=== PATIENT | male | born 1990 | race Hispanic/Latino ===

== ENCOUNTER 2016-12-09 02:22 | Emergency (ER) | payer SELFPAY ==
[2016-12-09 02:36] VITALS: PULSE 77
--- NOTE | 2016-12-09 04:32 | ED PDOC ---
HPI: Psych/Substance Abuse <Derek Varner Jr. - Last Filed: 12/09/16 08:08> Chief Complaint (Provider): Alcohol Ingestion History Per: EMS History/Exam Limitations: intoxication Onset/Duration Of Symptoms: Hrs Current Symptoms Are (Timing): Still Present Additional History Per: Patient Additional Complaint(s): Cheo Hendrickson is a 26 year old male with no past medical history who presents to the ED for evaluation of alcohol intoxication. Patient is cooperative and non agitated. History is limited due to intoxication. <Antione Chavez - Last Filed: 12/09/16 08:24> Time Seen by Provider: 12/09/16 02:36 Chief Complaint (Nursing): Alcohol Ingestion Past Medical History Vital Signs: Last Vital Signs Temp 97.6 F 12/09/16 02:34 Pulse 77 12/09/16 02:34 Resp 12/09/16 02:34 BP 137/68 12/09/16 02:34 Pulse Ox 97 12/09/16 04:41 <Derek Varner Jr. - Last Filed: 12/09/16 08:08> Reviewed: Historical Data, Nursing Documentation, Vital Signs Vital Signs: Last Vital Signs Temp 97.6 F 12/09/16 02:34 Pulse 77 12/09/16 02:34 Resp 12/09/16 02:34 BP 137/68 12/09/16 02:34 Pulse Ox 97 12/09/16 02:34 - Medical History PMH: No Chronic Diseases - Surgical History Surgical History: No Surg Hx - Family History Family History: States: Unknown Family Hx - Social History Alcohol: Social <Antione Chavez - Last Filed: 12/09/16 08:24> - Allergies Allergies/Adverse Reactions: Allergies Allergy/AdvReac Type Severity Reaction Status Date / Time No Known Allergies Allergy Verified 11/09/14 04:30 Review of Systems ROS Statement: Except As Marked, All Systems Reviewed And Found Negative Neurological: Positive for: Change in Speech <Antione Chavez - Last Filed: 12/09/16 08:24> Physical Exam - Reviewed Nursing Documentation Reviewed: Yes Vital Signs Reviewed: Yes - Physical Exam Appears: Positive for: Well, Non-toxic, No Acute Distress Head Exam: Positive for: ATRAUMATIC, NORMAL INSPECTION, NORMOCEPHALIC Skin: Positive for: Normal Color, Warm, Dry Eye Exam: Positive for: Normal appearance, EOMI, PERRL ENT: Positive for: Normal ENT Inspection Neck: Positive for: Normal, Painless ROM, Supple Cardiovascular/Chest: Positive for: Regular Rate, Rhythm. Negative for: Murmur , Tachycardia Respiratory: Positive for: Normal Breath Sounds Gastrointestinal/Abdominal: Positive for: Normal Exam, Soft. Negative for: Tenderness Male Genital Exam: Positive for: normal genitalia Back: Positive for: Normal Inspection Rectal: Positive for: Deferred Extremity: Positive for: Normal ROM Lymphatic: Positive for: Deferred Neurologic/Psych: Positive for: Alert, Oriented <Antione Chavez - Last Filed: 12/09/16 08:24> - ECG O2 Sat by Pulse Oximetry: 97 (RA) Pulse Ox Interpretation: Normal <Antione Chavez - Filed: 12/09/16 08:24> Medical Decision Making Medical Decision Makin: Initial Impression: 26 year old male alcohol intoxication. Initial Plan: * Alcohol serum * Drug screen Urine * POC * Re-Eval Signed out to Dr. Varner at 0700: pending sobriety. Scribe~Attestation: Documented by Lisbeth Arroyo acting as a~scribe~for Antione Chavez MD. ~ Provider~Scribe~Attestation: All medical record entries made by the~Scribe~were at my direction and personally dictated by me. I have reviewed the chart and agree that the record accurately reflects my personal performance of the history, physical exam, medical decision making, and the department course for this patient. I have also personally directed, reviewed, and agree with the discharge instructions and disposition. <Antione Chavez - Last Filed: 12/09/16 08:24> Disposition - Patient ED Disposition Is Patient to be Admitted: No - Disposition Disposition: Routine/Home Disposition Time: 08:08 - POA Present On Arrival: None <Derek Varner Jr. - Last Filed: 12/09/16 08:08> <Antione Chavez - Last Filed: 12/09/16 08:24> - Clinical Impression Clinical Impression: Alcohol intoxication - Disposition Referrals: Alcoholics Anonymous [Outside] Condition: IMPROVED Additional Instructions: Mr. Hendrickson, thank you for letting us take care of you today. Return to the ER if any problems. Do not drink alcohol in excess. Please call Alcoholics Anonymous to schedule outpatient care/assistance--phone number is listed below. Instructions: Alcohol Intoxication (ED) Forms: [facility] (Kittitian) Print Language: SLOVENIAN
[2016-12-09 08:53] VITALS: BP 130/77; RESP 18; TEMP 98; O2SAT 99
== END 2016-12-09 08:53 | disposition home or self-care (01) ==
LOC: H.ER 02:22
DX: F10.10 Alcohol abuse, uncomplicated (principal)
CPT/HCPCS: 99282; G0480

== ENCOUNTER 2017-03-10 03:01 | Emergency (ER) | payer SELFPAY ==
[2017-03-10 03:10] VITALS: BP 145/82; PULSE 88; RESP 16; TEMP 97.7; O2SAT 98
--- NOTE | 2017-03-10 03:26 | ED PDOC ---
HPI: Psych/Substance Abuse Time Seen by Provider: 03/10/17 03:04 Chief Complaint (Nursing): Alcohol Ingestion Chief Complaint (Provider): Alcohol Ingestion History Per: Patient History/Exam Limitations: no limitations Suicide/Self Injury Attempted (Context): None Modifying Factor(s): Alcohol Additional Complaint(s): 26 year old male brought in by [facility] presents to ED for alcohol intoxication and has a past history of excessive alcohol use. EMS states patient was found asleep on the hardwick of a car, walking with a steady gait, and had slurred speech. Patient offers no medical complaints. Provider offered the ability to call a sober democrat to escort patient home, but he is unable to contact anyone. PCP: None Past Medical History Reviewed: Historical Data, Nursing Documentation, Vital Signs Vital Signs: Last Vital Signs Temp 97.7 F 03/10/17 03:06 Pulse 88 03/10/17 03:06 Resp 16 03/10/17 03:06 BP 145/82 03/10/17 03:06 Pulse Ox 98 03/10/17 03:06 - Medical History PMH: No Chronic Diseases - Family History Family History: States: Unknown Family Hx - Social History Alcohol: Social - Allergies Allergies/Adverse Reactions: Allergies Allergy/AdvReac Type Severity Reaction Status Date / Time No Known Allergies Allergy Verified 11/09/14 04:30 Review of Systems ROS Statement: Except As Marked, All Systems Reviewed And Found Negative (No medical complaints) Physical Exam - Reviewed Nursing Documentation Reviewed: Yes Vital Signs Reviewed: Yes - Physical Exam Appears: Positive for: Non-toxic Head Exam: Positive for: ATRAUMATIC, NORMOCEPHALIC Skin: Positive for: Normal Color, Warm, Dry Eye Exam: Positive for: Normal appearance, EOMI, PERRL ENT: Positive for: Normal ENT Inspection Neck: Positive for: Normal, Painless ROM, Supple Cardiovascular/Chest: Positive for: Regular Rate, Rhythm. Negative for: Murmur Respiratory: Positive for: Normal Breath Sounds. Negative for: Respiratory Distress Gastrointestinal/Abdominal: Positive for: Soft. Negative for: Tenderness Back: Positive for: Normal Inspection Extremity: Positive for: Normal ROM. Negative for: Deformity Neurologic/Psych: Positive for: Alert, Oriented, Gait (unsteady), Other ( slurred speech). Negative for: Motor/Sensory Deficits - ECG O2 Sat by Pulse Oximetry: 98 (RA) Pulse Ox Interpretation: Normal Medical Decision Making Medical Decision Makin Initial impression: alcohol intoxication Initial plan: * EtOH serum * Accucheck 0413 Patient's alcohol level is elevated; however, patient is awake, alert, and oriented. Speech is articulate and gait is steady. Patient has agreed to taking an Uber home. Patient is medically stable for discharge home. Dx: alcohol intoxication Scribe Attestation: Documented by Tawnya Christianson acting as a scribe for Antione Chavez MD. Scribe Attestation: All medical record entries made by the Scribe were at my direction and personally dictated by me. I have reviewed the chart and agree that the record accurately reflects my personal performance of the history, physical exam, medical decision making, and the department course for this patient. I have also personally directed, reviewed, and agree with the discharge instructions and disposition. Disposition - Clinical Impression Clinical Impression: Alcohol intoxication - Patient ED Disposition Is Patient to be Admitted: No - Disposition Disposition: Routine/Home Disposition Time: 04:13 Condition: STABLE Instructions: Alcohol Intoxication (ED) Forms: [facility] (Grenadian)
== END 2017-03-10 04:16 | disposition home or self-care (01) ==
LOC: H.ER 03:01
DX: F10.129 Alcohol abuse with intoxication, unspecified (principal)
CPT/HCPCS: 82948; 99282; G0480

== ENCOUNTER 2017-10-15 03:47 | Emergency (ER) | payer SELFPAY ==
[2017-10-15 04:09] VITALS: RESP 18; TEMP 97.3; O2SAT 95
--- NOTE | 2017-10-15 04:15 | ED PDOC ---
HPI: Psych/Substance Abuse Time Seen by Provider: 10/15/17 04:14 Chief Complaint (Nursing): Alcohol Ingestion Chief Complaint (Provider): intoxicated ED Caveat: Intoxicated History Per: Patient History/Exam Limitations: no limitations Current Symptoms Are (Timing): Better Suicide/Self Injury Attempted (Context): None Involuntary Hold By: None Additional Complaint(s): no additional complaints Past Medical History Vital Signs: Last Vital Signs Temp 97.3 F L 10/15/17 03:59 Pulse 75 10/15/17 03:59 Resp 18 10/15/17 03:59 BP 126/80 10/15/17 03:59 Pulse Ox 95 10/15/17 03:59 - Family History Family History: States: Unknown Family Hx - Allergies Allergies/Adverse Reactions: Allergies Allergy/AdvReac Type Severity Reaction Status Date / Time No Known Allergies Allergy Verified 10/15/17 04:04 Review of Systems Musculoskeletal: Positive for: Other (Pt identifies no complaints injuries or illnesses that require any degree of medical attention) Physical Exam - Reviewed Nursing Documentation Reviewed: Yes Vital Signs Reviewed: Yes - Physical Exam Appears: Positive for: Well, Non-toxic, No Acute Distress. Negative for: Uncomfortable Head Exam: Positive for: ATRAUMATIC, NORMAL INSPECTION, NORMOCEPHALIC Skin: Positive for: Normal Color Neck: Positive for: Normal, Painless ROM, Supple. Negative for: Decreased ROM Cardiovascular/Chest: Positive for: Regular Rate, Rhythm, Chest Non Tender. Negative for: Edema, Gallop, Bradycardia, Tachycardia, Friction Rub, Irregularly Irregular Respiratory: Positive for: Normal Breath Sounds. Negative for: Decreased Breath Sounds, Accessory Muscle Use, Crackles, Rales, Rhonchi, Stridor, Wheezing Pulses-Carotid (L): 2+ Pulses-Carotid (R): 2+ Pulses-Radial (L): 2+ Pulses-Radial (R): 2+ - ECG O2 Sat by Pulse Oximetry: 95 Medical Decision Making Medical Decision Making: pt was brought in by [place] [facility] Pt has no injuries, strong gait, speaks in complete and understandable sentences and desires to go home and sleep Disposition - Clinical Impression Clinical Impression: Intoxication, Alcohol intoxication Doctor Will See Patient In The: Office Counseled Patient/Family Regarding: Diagnosis, Need For Followup - Disposition Disposition: Routine/Home Disposition Time: 04:20 Condition: GOOD
[2017-10-15 04:29] VITALS: BP 119/66; PULSE 78
== END 2017-10-15 04:29 | disposition home or self-care (01) ==
LOC: H.ER 03:47
DX: F10.129 Alcohol abuse with intoxication, unspecified (principal)